=== PATIENT | male | born 1970 | race Caucasian/White ===

== ENCOUNTER 2017-05-26 22:07 | Emergency (ER) | payer MEDICAID ==
[~2017-05-26] VITALS: Ht 185.4 cm; Wt 98.9 kg
[2017-05-26 22:17] VITALS: Ht 185.4 cm; Wt 98.9 kg
[2017-05-26 23:39] VITALS: BP 126/84
== END 2017-05-26 23:40 | disposition home or self-care (01) ==
LOC: ED 22:07
DX: S62.337A Displaced fracture of neck of fifth metacarpal bone, left hand, initial encounter for closed fracture (principal); I10 Essential (primary) hypertension; E11.9 Type 2 diabetes mellitus without complications; X58.XXXA Exposure to other specified factors, initial encounter; Y93.89 Activity, other specified; Y92.89 Other specified places as the place of occurrence of the external cause; Y99.8 Other external cause status

== ENCOUNTER 2018-06-12 04:20 | Emergency (ER) | payer SELFPAY ==
[~2018-06-12] VITALS: Ht 182.9 cm; Wt 117.9 kg
[2018-06-12 04:32] VITALS: Ht 182.9 cm; Wt 117.9 kg
[2018-06-12 05:39] LABS: microscopic required? NO
[2018-06-12 05:47] LABS: BASOPHIL % 0.3 % (0-2); PLATELET COUNT 240 x10^3mcL (130-400); RED CELL DISTRIBUTION WIDTH 13.8 % (11.5-14.5)
[2018-06-12 06:03] LABS: CALCIUM 7.8 mg/dL (8.5-10.1); CARBON DIOXIDE 26.3 mmol/L (21-32); CHLORIDE SERUM 106 mmol/L (98-107); CREATININE SERUM 0.8 mg/dL (0.7-1.3); GFR1 > 60 mL/min; GLUCOSE SERUM 211 mg/dL (74-106); POTASSIUM SERUM 3.6 mmol/L (3.5-5.1); SODIUM SERUM 143 mmol/L (136-145)
[2018-06-12 06:09] LABS: urine erythrocyte NEGATIVE (NEGATIVE)
[2018-06-12 06:15] LABS: ALKALINE PHOSPHATASE 129 U/L (46-116); ALT/SGPT 27 U/L (16-63); AST/SGOT 22 U/L (15-37); BILIRUBIN TOTAL 0.16 mg/dL (0.20-1.00); MAGNESIUM 1.9 mg/dL (1.8-2.4); TOTAL PROTEIN, SERUM 6.8 g/dL (6.4-8.2)
[2018-06-12 06:17] LABS: AMPHETAMINE QUAL UR NONE DETECTED (See below)
[2018-06-12 06:18] LABS: ALBUMIN 3.2 g/dL (3.4-5.0)
[2018-06-12 09:00] VITALS: BP 133/79
== END 2018-06-12 09:00 | disposition home or self-care (01) ==
LOC: ED 04:20
PROVIDERS: Emergency Medicine
DX: R00.2 Palpitations (principal); E11.65 Type 2 diabetes mellitus with hyperglycemia; E83.51 Hypocalcemia; I10 Essential (primary) hypertension; R11.0 Nausea
CPT/HCPCS: 36415; 84439; Q0092